=== PATIENT | male | born 1940 | race Caucasian/White ===

== ENCOUNTER 2017-02-21 11:19 | Inpatient (IN) | payer MEDICARE ==
[2017-02-21] MEDS ORDERED: NS 0.9% 1000 ML* 1,000 ML IV ONE ×2 (11:37→12:11)
[2017-02-21 11:50] LABS: Hematocrit 23 % (42-52); Hemoglobin 7.5 g/dl (14.0-18.0); Mean Corpuscular HGB Conc 33 g/dl (31-36); Mean Corpuscular Hemoglobin 33 pg (27-31); Mean Corpuscular Volume 99 fL (80-94); Mean Platelet Volume 8 um3 (7.4-10.4); Red Blood Count 2.29 10^6/ul (4.0-5.4); Red Cell Distribution Width 13 % (10.5-15); White Blood Count 9.8 10^3/ul (3.5-10.8)
[2017-02-21 12:02] LABS: ALT 300 U/L (7-52); AST 251 U/L (13-39); Albumin 3.7 g/dL (3.2-5.2); Alkaline Phosphatase 62 U/L (34-104); Amylase 20 U/L (29-103); Anion Gap 14 mmol/L (2-11); BUN/Creatinine Ratio 24.1 (8-20); Blood Urea Nitrogen 77 mg/dL (6-24); C Reactive Protein 23.66 mg/L (< 5.00); CO2 Carbon Dioxide 23 mmol/L (22-32); Calcium 9.4 mg/dL (8.6-10.3); Chloride 94 mmol/L (101-111); EGFR African American 24.4 (>60); Globulin 3.5 g/dL (2-4); Glucose 142 mg/dL (70-100); Lipase 37 U/L (11.0-82.0); Magnesium 2.3 mg/dL (1.9-2.7); Potassium 3.4 mmol/L (3.5-5.0); Sodium 131 mmol/L (133-145); Total Protein 7.2 g/dL (6.4-8.9)
[2017-02-21] MEDS ORDERED: Pantoprazole IV* 40 MG IV ONE (12:11)
--- NOTE | 2017-02-21 13:01 | RAD ---
HISTORY: Shortness of breath COMPARISONS: October 04, 2014 VIEWS: 2: Frontal dual-energy and lateral views of the chest. FINDINGS: CARDIOMEDIASTINAL SILHOUETTE: The cardiomediastinal silhouette is normal. KALPESH: The kalpesh are normal. PLEURA: The costophrenic angles are sharp. No pleural abnormalities are noted. LUNG PARENCHYMA: There is hyperinflation with flattening of the diaphragm and expansion of the AP diameter of the chest. ABDOMEN: The upper abdomen is clear. There is no subphrenic gas. BONES AND SOFT TISSUES: The patient is status post right shoulder arthroplasty OTHER: None. IMPRESSION: HYPERINFLATION, CONSISTENT WITH COPD. NO ACTIVE CARDIOPULMONARY DISEASE.
--- NOTE | 2017-02-21 13:02 | RAD ---
Indication: Diarrhea. Shortness of breath. Comparison: No relevant prior exams available on the [facility] P[facility] for comparison. Technique: Supine and LEFT lateral decubitus abdomen views obtained. Report: Negative for free air. Negative for dilated small or large bowel loops. On the decubitus views short small and large bowel air-fluid levels are noted. No suspicious calcifications or mass effect. Unremarkable soft tissue contours. IMPRESSION: Consider gastroenteritis.
[2017-02-21] MEDS ORDERED: Ondansetron INJ* 2 MG/ML VIAL IV PRN (13:08)
[2017-02-21] MEDS ORDERED: NS 0.9% 1000 ML* 1,000 ML IV SCH (13:15)
[2017-02-21] MEDS ORDERED: LORazepam TAB(*) 1 MG PO SCH (14:00)
[2017-02-21] MEDS: KCL 10 MEQ/50 ML IVPREMIX* 10 MEQ/50 ML BAG IV SCH ×3 (14:47→18:12)
[2017-02-21] MEDS: Gabapentin CAP(*) 300 MG PO SCH ×2 (14:48→20:15)
[2017-02-21 15:11] LABS: Alcohol < 10 mg/dL (<10)
[2017-02-21] MEDS ORDERED: NS 0.9% 250 ML* 250 ML ONE (16:02)
[2017-02-21] MEDS: Pantoprazole IV* 80 MG in NS 0.9% 250 ML* 250 ML IVPB SCH (18:12)
[2017-02-21 18:33] LABS: Hematocrit 21 % (42-52)
--- NOTE | 2017-02-21 18:41 | ED ---
marcus Barney Timothy, scribed for Darshan Myrick MD on 02/21/17 at 1135 . Shortness of Breath - HPI Summary HPI Summary: Taj Schmidt is a 76 yo male presenting to [facility] with SOB. Pt has had bloody , purple BM for the past 4 days with SOB. Pt uses 4 L NC at home. Per EMS, Pt was pale, diaphoretic, and had O2 sats in the 50's upon their arrival. Pt was placed on CPAP and saturation improved. He denies any use of blood thinners. His last colonoscopy was 4 years ago and was normal. He denies any current pain , CP, N/V, cough. His MHx includes HTN, COPD, emphysema, asthma, bronchitis, BiPAP dependent, sleep apnea, 2x umbilical hernia, arthritis, herniated disk, anxiety. - History of Current Complaint Chief Complaint: EDShortnessOfBreath Time Seen by Provider: 02/21/17 11:29 Hx Obtained From: Patient Onset/Duration: Gradual Onset, Lasting Days, Still Present Timing: Constant Current Severity: Moderate Dyspnea At: Rest - Allergy/Home Medications Allergies/Adverse Reactions: Allergies Allergy/AdvReac Type Severity Reaction Status Date / Time Aspirin Allergy Intermediate GI Upset Verified 08/02/16 14:24 Hydrochlorothiazide Allergy Intermediate GI Upset Verified 08/02/16 14:24 Tetracyclines & Related Allergy Intermediate GI Upset Verified 08/02/16 14:24 Home Medications: Home Medications Albuterol HFA INHALER* [Ventolin HFA Inhaler*] 2 puff INH Q4H PRN 02/21/17 [ History Confirmed 02/21/17] Fluticasone-Salmeterol 250-50* [Advair Diskus 250-50*] 1 puff INH BID 02/21/17 [ History Confirmed 02/21/17] LORazepam TAB(*) [Ativan 1 MG TAB (*)] 0.5 mg PO DAILY 02/21/17 [History Confirmed 02/21/17] Multivitamins/Minerals TAB* [Theragran/minerals TAB*] 1 tab PO DAILY 02/21/17 [ History Confirmed 02/21/17] Nitroglycerin TAB 0.4 MG* 0.4 mg SL Q5M PRN 02/21/17 [History Confirmed 02/21/17 ] PMH/Surg Hx/FS Hx/Imm Hx Endocrine/Hematology History: Denies: Hx Diabetes Cardiovascular History: Reports: Hx Hypertension - CONTROLLED WITH MEDS Denies: Hx Pacemaker/ICD Respiratory History: Reports: Hx Chronic Obstructive Pulmonary Disease (COPD), Hx Sleep Apnea - BIPAP WITH OXYGEN SET AT 4 Denies: Hx Asthma - EMPHYSEMA GI History: Reports: Other GI Disorders - UMBILICAL HERNIAS X2 Musculoskeletal History: Reports: Hx Arthritis - RIGHT SHOULDER, FINGERS, LEGS, KNEES Denies: Hx Osteoporosis Sensory History: Reports: Hx Contacts or Glasses Denies: Hx Hearing Aid Opthamlomology History: Reports: Hx Contacts or Glasses Psychiatric History: Reports: Hx Anxiety - PRN LORAZEPAM-RELATES TO COPD- INCREASED ANXIETY WHEN HAS DIFF. BREATHING Denies: Hx Panic Disorder - Surgical History Surgery Procedure, Year, and Place: back/disc surgery X2 (2008,2009),[facility]Y Hx Anesthesia Reactions: No Infectious Disease History: Denies: Traveled Outside the [place] in Last 30 Days - Family History Known Family History: Negative: Cardiac Disease, Hypertension, Diabetes - Social History Alcohol Use: Daily Alcohol Amount: 5 beers/day Substance Use Type: Reports: None Smoking Status (MU): Former Smoker Amount Used/How Often: 1-1 1/2 PPD X38 YEARS Review of Systems Positive: Skin Diaphoresis, Other - pale Eyes: Negative ENT: Negative Cardiovascular: Negative Positive: Shortness Of Breath Positive: Other - bloody stool Genitourinary: Negative Musculoskeletal: Negative Skin: Negative Neurological: Negative Psychological: Normal All Other Systems Reviewed And Are Negative: Yes Physical Exam - Summary Physical Exam Summary: VITAL SIGNS: Reviewed. GENERAL: Patient is a well-developed and nourished male who is lying comfortable in the stretcher. Patient is in mild respiratory distress and is pale on BiPAP from ambulance. He is able to complete full sentences. Pt is very anxious. HEAD AND FACE: No signs of trauma. No ecchymosis, hematomas or skull depressions. No sinus tenderness. EYES: PERRLA, EOMI x 2, No injected conjunctiva, no nystagmus. EARS: Hearing grossly intact. Ear canals and tympanic membranes are within normal limits. MOUTH: Oropharynx within normal limits. NECK: Supple, trachea is midline, no adenopathy, no JVD, no carotid bruit, no c- spine tenderness, neck with full ROM. CHEST: Symmetric, no tenderness at palpation LUNGS: Clear to auscultation bilaterally. No wheezing or crackles. CVS: Regular rate and rhythm, S1 and S2 present, no murmurs or gallops appreciated. ABDOMEN: Soft, non-tender. No signs of distention. No rebound no guarding, and no masses palpated. Bowel sounds are normal. EXTREMITIES: FROM in all major joints, no edema, no cyanosis or clubbing. NEURO: Alert and oriented x 3. No acute neurological deficits. Speech is normal and follows commands. SKIN: Dry and warm RECTAL: no gross blood or melena. Triage Information Reviewed: Yes Vital Signs On Initial Exam: Initial Vital Signs Temp 98.6 F 02/21/17 11:26 Pulse 90 02/21/17 11:26 Resp 24 02/21/17 11:26 BP 111/53 02/21/17 11:26 Pulse Ox 96 02/21/17 11:26 Vital Signs Reviewed: Yes Diagnostics - Vital Signs Vital Signs Temp Pulse Resp BP Pulse Ox 02/21/17 13:00 84 18 121/51 96 02/21/17 12:56 85 16 102/65 100 02/21/17 12:14 81 16 112/48 100 02/21/17 12:00 84 16 99 02/21/17 11:28 21 02/21/17 11:27 111/53 02/21/17 11:26 98.6 F 90 24 111/53 96 - Laboratory Lab Results: Lab Results 02/21/17 02/21/17 02/21/17 Range/Units 11:30 11:30 11:30 WBC 9.8 (3.5-10.8) 10^3/ul RBC 2.29 L (4.0-5.4) 10^6/ul Hgb 7.5 L (14.0-18.0) g/dl Hct 23 L (42-52) % MCV 99 H (80-94) fL MCH 33 H (27-31) pg MCHC 33 (31-36) g/dl RDW 13 (10.5-15) % Plt Count 468 H (150-450) 10^3/ul MPV 8 (7.4-10.4) um3 Neut % (Auto) 79.3 (38-83) % Lymph % (Auto) 8.1 L (25-47) % [place] % (Auto) 11.3 H (1-9) % Eos % (Auto) 0.6 (0-6) % Baso % (Auto) 0.7 (0-2) % Absolute Neuts (auto) 7.8 H (1.5-7.7) 10^3/ul Absolute Lymphs (auto) 0.8 L (1.0-4.8) 10^3/ul Absolute Monos (auto) 1.1 H (0-0.8) 10^3/ul Absolute Eos (auto) 0.1 (0-0.6) 10^3/ul Absolute Basos (auto) 0.1 (0-0.2) 10^3/ul Absolute Nucleated RBC 0.01 10^3/ul Nucleated RBC % 0.1 INR (Anticoag Therapy) 0.98 (0.89-1.11) APTT 29.0 (26.0-36.3) seconds Sodium 131 L (133-145) mmol/L Potassium 3.4 L (3.5-5.0) mmol/L Chloride 94 L (101-111) mmol/L Carbon Dioxide 23 (22-32) mmol/L Anion Gap 14 H (2-11) mmol/L BUN 77 H (6-24) mg/dL Creatinine 3.20 H (0.67-1.17) mg/dL Est GFR ( Amer) 24.4 (>60) Est GFR (Non-Af Amer) 19.0 (>60) BUN/Creatinine Ratio 24.1 H (8-20) Glucose 142 H (70-100) mg/dL Lactic Acid (0.5-2.0) mmol/L Calcium 9.4 (8.6-10.3) mg/dL Magnesium 2.3 (1.9-2.7) mg/dL Total Bilirubin 0.70 (0.2-1.0) mg/dL AST 251 H (13-39) U/L ALT 300 H (7-52) U/L Alkaline Phosphatase 62 (34-104) U/L C-Reactive Protein 23.66 H (< 5.00) mg/L B-Natriuretic Peptide ( - 100) pg/mL Total Protein 7.2 (6.4-8.9) g/dL Albumin 3.7 (3.2-5.2) g/dL Globulin 3.5 (2-4) g/dL Albumin/Globulin Ratio 1.1 (1-3) Amylase 20 L (29-103) U/L Lipase 37 (11.0-82.0) U/L Serum Alcohol < 10 (<10) mg/dL Blood Type Antibody Screen Crossmatch 02/21/17 02/21/17 02/21/17 Range/Units 11:30 11:30 11:30 WBC (3.5-10.8) 10^3/ul RBC (4.0-5.4) 10^6/ul Hgb (14.0-18.0) g/dl Hct (42-52) % MCV (80-94) fL MCH (27-31) pg MCHC (31-36) g/dl RDW (10.5-15) % Plt Count (150-450) 10^3/ul MPV (7.4-10.4) um3 Neut % (Auto) (38-83) % Lymph % (Auto) (25-47) % [place] % (Auto) (1-9) % Eos % (Auto) (0-6) % Baso % (Auto) (0-2) % Absolute Neuts (auto) (1.5-7.7) 10^3/ul Absolute Lymphs (auto) (1.0-4.8) 10^3/ul Absolute Monos (auto) (0-0.8) 10^3/ul Absolute Eos (auto) (0-0.6) 10^3/ul Absolute Basos (auto) (0-0.2) 10^3/ul Absolute Nucleated RBC 10^3/ul Nucleated RBC % INR (Anticoag Therapy) (0.89-1.11) APTT (26.0-36.3) seconds Sodium (133-145) mmol/L Potassium (3.5-5.0) mmol/L Chloride (101-111) mmol/L Carbon Dioxide (22-32) mmol/L Anion Gap (2-11) mmol/L BUN (6-24) mg/dL Creatinine (0.67-1.17) mg/dL Est GFR ( Amer) (>60) Est GFR (Non-Af Amer) (>60) BUN/Creatinine Ratio (8-20) Glucose (70-100) mg/dL Lactic Acid 1.9 (0.5-2.0) mmol/L Calcium (8.6-10.3) mg/dL Magnesium (1.9-2.7) mg/dL Total Bilirubin (0.2-1.0) mg/dL AST (13-39) U/L ALT (7-52) U/L Alkaline Phosphatase (34-104) U/L C-Reactive Protein (< 5.00) mg/L B-Natriuretic Peptide 102 H ( - 100) pg/mL Total Protein (6.4-8.9) g/dL Albumin (3.2-5.2) g/dL Globulin (2-4) g/dL Albumin/Globulin Ratio (1-3) Amylase (29-103) U/L Lipase (11.0-82.0) U/L Serum Alcohol (<10) mg/dL Blood Type A Negative Antibody Screen Negative Crossmatch See Detail Result Diagrams: 02/21/17 11:30 02/21/17 11:30 Lab Statement: Any lab studies that have been ordered have been reviewed, and results considered in the medical decision making process. - Radiology Abd XR Xray Interpretation: Positive (See Comments) - IMPRESSION: Consider gastroenteritis. Radiology Interpretation Completed By: Radiologist CXR Xray Interpretation: No Acute Changes - IMPRESSION: HYPERINFLATION, CONSISTENT WITH COPD. NO ACTIVE CARDIOPULMONARY DISEASE. Radiology Interpretation Completed By: Radiologist - EKG 1137 Cardiac Rate: NL - 87 BPM EKG Interpretation: NSR @ 87 BPM, no ST elevation Course/Dx - Course Assessment/Plan: Taj Schmidt is a 76 yo male presenting [facility] with bloody stool and SOB for the past 4 days, worse today. His EKG suggests normal rhythm without ST elevation. In the ED he received IV fluids and protonix. His stool is positive for blood. His Abd XR suggests gastroenteritis. His CXR suggests hyperinflation with no acute cardiopulmonary disease. After clinical examination and review of his lab and imaging studies, as well as discussion with Dr. Brand, he will be admitted to [facility]. Of note is his lab work: Hgb 7.5, Hct 23, Na 131, K 3.4, BUN 77, Creatinine 3.0, consistent with acute renal insufficiency. His AST 251, ALT 300, CRP 23.6. His rectal exam is guiac positive. His BP is on the low side at 111/53 but is stable. His heart rate is 84 BPM, O2 sat 94 on room air. Pt initially was given 2 IV access, started with IV fluids and protonix. He continues to be hemodynamically stable. I discussed the Pt condition with Dr. Brand, who accepts him for admission to [facility]. The Pt is likely dealing with a GI bleed. Pt reports a clean colonoscopy 4 years ag. He is not on anticoagulation therapy or NSAID's, but is an alcoholic. Therefore , he is at increased risk for esophageal varices and GI bleed. - Diagnoses Provider Diagnoses: GI bleed - Physician Notifications Discussed Care of Patient With: 1119 - Dr. Brand (hospitalist) - discussed Pt condition, agrees to admit Pt. - Critical Care Time Critical Care Time: 30-74 min Discharge - Discharge Plan Condition: Stable Disposition: ADMITTED TO [facility] The documentation as recorded by the marcus rey Timothy accurately reflects the service I personally performed and the decisions made by me, Darshan Myrick MD.
--- NOTE | 2017-02-21 19:31 | RAD ---
CLINICAL HISTORY: Bloody bowel movements and shortness of breath. Relevant surgical history includes appendectomy. COMPARISON: None TECHNIQUE: Noncontrast CT examination of the abdomen and pelvis from the lung bases through the initial tuberosities. FINDINGS: VISUALIZED LUNG BASES: Lungs exhibit diffuse centrilobular emphysematous changes. At the bilateral lung bases there is a small degree of subpleural interlobular thickening, worse on the right than the left. ABDOMEN AND PELVIS: Evaluation of the solid organs and vasculature is limited without intravenous contrast. The liver, spleen, pancreas and adrenal glands are grossly normal in appearance. The gallbladder is normal. In the subareolar region of the liver there is a dilated vascular structure measuring 7 mm in diameter (axial image 24 of 96) that appears to communicate with the superior mesenteric vein. The main portal vein is not pathologically dilated measuring 1.1 cm in diameter. There are questionable venous varicosities along the lesser curvature of the stomach (image 20). The kidneys are normal in appearance without focal mass, calcification or signs of hydronephrosis. The urinary bladder appears distended but the volume only measures 700 mL. Neural contrast has progressed as far as the rectum. The small and large bowel are not distended. There are diverticula seen throughout the length of the colon that become more numerous and concentrated distally in the rectosigmoid colon. There is no gross retroperitoneal or mesenteric lymphadenopathy. The prostate measures 3.8 x 5.2 cm in the axial plane and 6 cm in the cephalocaudal projection. There is coarse calcification of the lower abdominal aorta extending into the bilateral iliac arteries. Similar calcifications are seen in the proximal femoral arteries. Degenerative changes include multilevel loss of intervertebral disc height involving the lower thoracic and lumbar spine.There are no sinister bone lesions. IMPRESSION: 1. Diverticulosis without CT evidence of acute inflammatory change characteristic of diverticulitis, within the limitations of a non-IV contrast enhanced CT examination. 2. There are suspicious signs of portal venous hypertension yielding mesenteric and gastric varices. Please correlate to any signs of upper GI bleed. 3. Mild prostatomegaly with a top normal but not pathologically enlarged urinary bladder. Please correlate to signs and symptoms of urinary outlet obstruction.
[2017-02-21] MEDS: Mometasone/Formoter 200/5 MDI INH SCH (20:51)
--- NOTE | 2017-02-21 21:15 | HP ---
HISTORY AND PHYSICAL: DATE OF ADMISSION: 02/21/17 PRIMARY CARE DOCTOR: Diane Zavala MD ATTENDING PHYSICIAN WHILE IN THE HOSPITAL: Jerome Brand MD* (report being dictated by Ryan Jackson NP). CHIEF COMPLAINT: Bright red blood per rectum. HISTORY OF PRESENT ILLNESS: Mr. Schmidt is a 76-year-old male patient. He has a history of COPD, hypertension, ARIA, CAD and diverticulitis. He has had an upper endoscopy done in 2014 that did not reveal any esophageal varices. He does state that he admits to drinking about 2 to 3 beers daily, but he has not drank in the last 5 days. He states that over the last 2 to 3 days he has noticed that when he has been having bowel movements, his bowel movements have been almost like a maroon color with bright red blood. He says that he noticed yesterday whenever he changed position, he was feeling lightheaded almost to the point where he was going to pass out. He did fall several times yesterday down to his knees because he was feeling so lightheaded when he changed position. He states he has been taking his medications as prescribed. He also admits to having some lower abdominal discomfort and cramping, but he denies that now. He states that the last couple of days he did have some, mostly in the left lower quadrant. He denied having any fevers and there has been no vomiting and he states the stool has not been really tarry. He states that he has been taking ibuprofen 2 to 3 times a day the last 4 to 5 days as well. He states that he has not really been eating or drinking as much as he should. He was concerned today because he had another large bowel movement that was again purplish in color with bright red blood, so he decided to come in to the ER. He does state that he had a colonoscopy he thinks 4 years ago down at [place] and he knows he has polyps and he states in the past he has had diverticulitis. He came in, he was evaluated by Dr. Myrick. There was concern for GI bleed. We were asked to evaluate for admission. PAST MEDICAL HISTORY: Significant for: 1. COPD. 2. Hypertension. 3. ARIA. 4. CAD. 5. Diverticulitis. PAST SURGICAL HISTORY: 1. He has had an appendectomy. 2. Hernia repair. MEDICATIONS: His home meds according to the pharmacy includes: 1. Tramadol 50 mg every 8 hours as needed. 2. Ambien 5 mg p.o. at bedtime as needed. 3. Zocor 20 mg daily. 4. Metamucil 1 packet daily as needed. 5. Nitro 0.4 mg sublingual q.5 minutes p.r.n. chest pain. 6. Multivitamin 1 tablet daily. 7. Ativan 0.5 mg p.o. daily. 8. Imdur 60 mg p.o. q.p.m. 9. Neurontin 300 mg p.o. t.i.d. 10. Lasix 40 mg p.o. daily. 11. Advair 1 puff inhaled b.i.d. 12. Cranberry 500 mg daily. 13. Vitamin D3 1000 units p.o. daily. 14. Ventolin 2 puffs inhaled every 4 hours as needed. 15. Albuterol 2.5 mg inhaled every 6 hours as needed. ALLERGIES: To medications include ASPIRIN, HYDROCHLOROTHIAZIDE and TETRACYCLINE. FAMILY HISTORY: His mother had lung cancer. Father at the age of 93. SOCIAL HISTORY: He does not smoke. He used to smoke. He does drink 2 beers a day. Surrogate decision maker is his friend, Elias. REVIEW OF SYSTEMS: There is no documented fever. He denied any significant weight change. No double vision. No ear discharge. No rhinorrhea. No sore throat. No thyroid enlargement. He denies having any chest pain. There is no orthopnea. No nocturnal dyspnea. There was abdominal discomfort, but none now. He denies any nausea, vomiting. No dysuria. No frequency. No seizure. No loss of consciousness. No pruritus. No skin ulcerations. Review of 14 systems completed, all others negative. PHYSICAL EXAMINATION GENERAL: At this time, Mr. Schmidt is a 76-year-old male patient. He is sitting in the ER stretcher. He does not appear to be in any acute distress. VITAL SIGNS: Blood pressure 111/53 with a pulse of 92, respirations 20, O2 sat 99% on 4 L and a temperature of 98.6. HEENT: Head atraumatic. Eyes: Sclerae anicteric. They did appear to be pale. Throat: Oral mucosa appears to be dry. No oropharyngeal erythema. NECK: Supple. LUNGS: Clear to auscultation. No wheezes, rales or rhonchi. HEART: Sounds S1, S2. Regular rate and rhythm. No murmurs, rubs, or gallops. ABDOMEN: Soft, it was flat. There was a little bit of tenderness in the left lower quadrant. On rectal exam I did not appreciate any bright red blood. EXTREMITIES: Pulses are 2+ throughout. No peripheral edema. Able to move all 4 extremities with 5/5 strength. NEUROLOGIC: He is awake, alert, oriented x3. Tongue midline. Law Enforcement Instructor are equal. No gross focal deficits. SKIN: Intact. DIAGNOSTIC STUDIES/LAB DATA: His labs today reveal a WBC of 9.8, RBC of 2.29, hemoglobin of 7.5, hematocrit 23, platelet count 468. PTT at 29. His sodium was 131, potassium of 3.4, chloride of 94, bicarb 23. BUN 77; creatinine of 3.20, his baseline creatinine is about 0.8. His glucose is 142, lactate 1.9, calcium 9.4, mag 2.3, total bili 0.7, AST 251, ALT 300, alk phos 62. BNP of 102 , albumin 3.7, lipase 37, amylase 20. He did have a chest x-ray obtained today, which revealed hyperinflation consistent with COPD, no active disease was noted. He had an abdominal x-ray, which revealed consider gastroenteritis. Old medical records reviewed. ASSESSMENT AND PLAN: Mr. Schmidt is a 76-year-old male patient coming into the ER today with complaints of purplish type stools and bright red blood per rectum. He will be admitted under inpatient status for: 1. GI bleed. I suspect the etiology of this is lower GI bleed. He certainly could have a diverticular bleed. I do not think this is ischemic colitis as he is not having a significant amount of pain currently. The plan is to keep the patient on clears, cycle his H and H, check orthostatics. In addition to this, get GI input. I am going to go ahead and put him on PPI because he has been taking a significant amount of NSAIDs. In addition to this, his BUN is up compared to his baseline and we will go ahead and give him 1 unit of blood. I am going to have GI come and evaluate the patient later today and we will follow closely and we will go ahead and continue hydration. He got 2 L here in the ER, he will have normal saline at 100 an hour after the 1 unit of blood and then we will follow the H and H and transfuse as needed. I am getting a CT of the abdomen and pelvis as well. 2. Acute kidney injury. Again, etiology is unclear. It certainly could be from the NSAIDs and the fact that he was taking Lasix could be prerenal and he may have some acute tubular necrosis. He did certainly have some hypoxia when he came in, it was documented by the ambulance. His sats were in the 50s when they arrived on the scene, so he may have also been hypotensive, it is unclear which may have caused again some acute kidney injury. My plan is to go ahead and get a FeNa, bladder scan him, hydrate him and follow this closely. 3. Hyponatremia, it is mild. Again, could be dehydration. We will follow BMP in the morning. 4. Hypokalemia. We will go ahead and replace potassium. 5. Elevated LFTs. Etiology is unclear. It could be from alcohol consumption, it could be related to hypotension with hypoxia causing some stress on the liver. It could also be related to his medication use. I am going to trend these. GI will be involved and I am going to get a CT of the abdomen and pelvis to evaluate. 6. Chronic obstructive pulmonary disease. We will continue his medicine as prescribed and does not appear to be in exacerbation. 7. Hypertension. Continue meds as prescribed. 8. Obstructive sleep apnea. I have ordered a CPAP. 9. Coronary artery disease. We will restart his nitrates and blood pressure medication when able. Holding on any blood thinners. 10. DVT prophylaxis. He will be placed on SCDs. 11. Code status. Full code. 12. Fluids, electrolytes, nutrition. He can have a clear liquid diet. TIME SPENT: On the admission was approximately 60 minutes, greater than half the time was spent [id number] with the patient obtaining my history and physical, other half of the time spent going over the plan of care with the patient and implementing plan of care. I did discuss the plan of care with my attending, Dr. Brand; he is in agreement. RYAN JACKSON NP CC: Diane Zavala MD; Dr. Miranda* [id number]/[facility] #: [id number] [facility]
[2017-02-22] MEDS: Zolpidem TAB* 5 MG PO PRN (00:20)
[2017-02-22 01:57] LABS: Hematocrit 22 % (42-52); Hemoglobin 7.4 g/dl (14.0-18.0)
--- NOTE | 2017-02-22 02:21 | CONS ---
CONSULTATION REPORT: DATE OF CONSULTATION: 02/21/17 REQUESTING PHYSICIAN: Ryan Jackson NP INDICATION: Hematochezia. NARRATIVE: Mr. Schmidt is a 76-year-old gentleman, who has a known history of diverticulosis, who comes in with maroon stools for the past week. He denies any abdominal pain. He states this morning the bleeding became much more severe. He panicked and came to the emergency room. He was found to have a hemoglobin of 7.5. He has been weak, dizzy and finding it difficult to ambulate due to his weakness. He denies any nausea or vomiting. There has been no abdominal pain. He has been taking nonsteroidals for the past week for leg pain; however, he denies any black and tarry stools, no bright red blood. He has never had bleeding like this before. He tells me his last colonoscopy was 4 years ago at the [facility] with Dr. Dash. They told him he only had diverticulosis, no polyps. He tells me that he had a colonoscopy before that, at which time he had 7 polyps removed and the time before that 14 polyps removed. He has had diverticulosis each time. PAST MEDICAL HISTORY: Significant for oxygen requiring COPD, hypertension, right bundle branch block, hyperlipidemia, coronary artery disease, anemia, ARIA , and diverticulosis. PAST SURGICAL HISTORY: Include appendectomy and back surgery. MEDICATIONS UPON ADMISSION: Include: 1. Albuterol. 2. Lipitor. 3. Neurontin. 4. Ativan. 5. Dulera. 6. Zofran. 7. Ambien. ALLERGIES: ASPIRIN, HYDROCHLOROTHIAZIDE, TETRACYCLINE. FAMILY HISTORY: No GI malignancies. REVIEW OF SYSTEMS: All systems were reviewed, other than that mentioned in the HPI are unremarkable. PHYSICAL EXAM: Temperature is 97.7, blood pressure is 120/46, pulse is 76, respiratory rate 16. General: Chronically ill-appearing male, appears older than stated age. Alert, oriented, pleasant, fluent. HEENT: Mucous membranes are moist without lesions, ulcers or exudate. Neck: Supple. Trachea is midline. Head is normocephalic, atraumatic. Heart: Regular rate and rhythm. Lungs: Coarse breath sounds bilaterally. No crackles. Abdomen: Positive bowel sounds. Soft, nontender, nondistended. No hepatosplenomegaly, masses, rebound or guarding. Skin is warm and dry. LABORATORY DATA: Labs of note, hemoglobin 7.5, platelets of 468. BUN of 77, creatinine is 3.20. AST is 281, ALT is 300, CRP is 23.66. T. bili is 0.7. Alk phos is 62. ASSESSMENT AND PLAN: This is a 76-year-old gentleman, who has been having maroon stools for a week, who is now anemic and symptomatic. He is receiving blood. I do wonder if he is having a diverticular bleed. According to the patient, he just had a colonoscopy 4 years ago, at which time only diverticulosis was seen. He is not having any pain that is consistent with a diverticular bleed. I would recommend that we continue to monitor him closely. We will need to obtain the results of his previous colonoscopy. He also has increased LFTs, I am not sure the cause of this. We will repeat the LFTs and further workup will be determined if the LFTs remained elevated. He also has chronic renal insufficiency. CC: Dr. Zavala* [id number]/[facility] #: [id number]
[2017-02-22 03:49] LABS: Urine Bacteria 1+ (Absent); Urine Bilirubin Negative (Negative); Urine Glucose 1+(50 mg/dL) (Negative); Urine Nitrite Negative (Negative)
[2017-02-22] MEDS ORDERED: NS 0.9% 250 ML* 250 ML ONE ×2 (04:38)
[2017-02-22] MEDS: Pantoprazole IV* 80 MG in NS 0.9% 250 ML* 250 ML IVPB SCH ×2 (05:06→16:58)
[2017-02-22 07:52] LABS: Hematocrit 24 % (42-52); Hemoglobin 8.2 g/dl (14.0-18.0); Mean Corpuscular HGB Conc 34 g/dl (31-36); Mean Corpuscular Hemoglobin 32 pg (27-31); Mean Corpuscular Volume 94 fL (80-94); Mean Platelet Volume 7 um3 (7.4-10.4); Red Blood Count 2.58 10^6/ul (4.0-5.4); Red Cell Distribution Width 16 % (10.5-15); White Blood Count 6.5 10^3/ul (3.5-10.8)
[2017-02-22 08:01] LABS: Direct Bilirubin 0.2 mg/dL (0.03-0.18); EGFR Non-African American 39.7 (>60); Globulin 2.7 g/dL (2-4); Indirect Bilirubin 0.7 mg/dL (0.3-1.0); Potassium 3.1 mmol/L (3.5-5.0); Total Bilirubin 0.9 mg/dL (0.2-1.0); Total Protein 5.7 g/dL (6.4-8.9)
[2017-02-22] MEDS: Thiamine TAB* 100 MG TAB PO SCH (08:04)
[2017-02-22] MEDS: Atorvastatin* 10 MG TAB PO SCH (08:05)
[2017-02-22] MEDS: Gabapentin CAP(*) 300 MG PO SCH ×3 (08:05→20:10)
[2017-02-22] MEDS: Multivitamins/Minerals TAB PO SCH (08:05)
[2017-02-22] MEDS: LORazepam TAB(*) 0.5 MG PO SCH (08:05)
[2017-02-22] MEDS: Folic Acid TAB* 1 MG PO SCH (08:05)
[2017-02-22] MEDS ORDERED: Potassium Chlor TAB* 20 MEQ TAB.ER PO ONE (08:09)
[2017-02-22] MEDS: Mometasone/Formoter 200/5 MDI INH SCH ×2 (09:06→19:57)
--- NOTE | 2017-02-22 11:03 | PN ---
Subjective Date of Service: 02/22/17 Interval History: Patient seen and examined at bedside. Denies chest pain, SOB, abd pain, n/v. Reports episode of bloody stool this AM x 1. Family History: Unchanged from Admission Social History: Unchanged from Admission Past Medical History: Unchanged from Admission Objective Active Medications: Albuterol (Ventolin 2.5 Mg/3 Ml Neb.Nellie*) 2.5 mg INH Q2H PRN PRN Reason: SOB/WHEEZING Atorvastatin Calcium (Lipitor*) 10 mg PO DAILY [facility] Last Admin: 02/22/17 08:05 Dose: 10 mg Folic Acid (Folvite Tab*) 1 mg PO DAILY [facility] Last Admin: 02/22/17 08:05 Dose: 1 mg Gabapentin (Neurontin Cap(*)) 300 mg PO TID [facility] Last Admin: 02/22/17 08:05 Dose: 300 mg Sodium Chloride (Ns 0.9% 1000 Ml*) 1,000 mls @ 100 mls/hr IV PER RATE [facility] Last Admin: 02/21/17 18:13 Dose: 100 mls/hr Pantoprazole Sodium 80 mg/ (Sodium Chloride) 250 mls @ 25 mls/hr IVPB Q10H [facility] Last Admin: 02/22/17 05:06 Dose: 25 mls/hr Lorazepam (Ativan Tab(*)) 0 mg PO .PER WAM SCORE [facility] PRN Reason: Protocol Lorazepam (Ativan Tab(*)) 0.5 mg PO DAILY [facility] Last Admin: 02/22/17 08:05 Dose: 0.5 mg Mometasone Furoate/Formoterol Fumar (Dulera 200/5 Mdi*) 2 puff INH BID [facility] Last Admin: 02/22/17 09:06 Dose: 2 puff Multivitamins/Minerals (Theragran/Minerals Tab*) 1 tab PO DAILY [facility] Last Admin: 02/22/17 08:05 Dose: 1 tab Ondansetron HCl (Zofran Inj*) 4 mg IV Q6H PRN PRN Reason: NAUSEA Thiamine HCl (Vitamin B-1 Tab*) 100 mg PO DAILY [facility] Last Admin: 02/22/17 08:04 Dose: 100 mg Tramadol HCl (Ultram*) 50 mg PO Q8HR PRN PRN Reason: PAIN Zolpidem Tartrate (Ambien Tab*) 5 mg PO BEDTIME PRN PRN Reason: SLEEP Last Admin: 02/22/17 00:20 Dose: 5 mg Vital Signs 02/21/17 02/21/17 02/21/17 13:47 14:00 14:48 Temperature 97.7 F Pulse Rate 76 79 Respiratory 16 17 18 Rate Blood Pressure 120/46 122/51 (mmHg) O2 Sat by Pulse 95 100 Oximetry 02/21/17 02/21/17 02/21/17 15:16 16:38 19:29 Temperature Pulse Rate 81 Respiratory 18 18 18 Rate Blood Pressure 123/47 (mmHg) O2 Sat by Pulse 100 Oximetry 02/21/17 02/21/17 02/21/17 19:56 19:58 20:00 Temperature 99.5 F Pulse Rate 97 Respiratory 16 Rate Blood Pressure 110/42 (mmHg) O2 Sat by Pulse Oximetry 02/21/17 02/21/17 02/21/17 20:15 20:55 23:44 Temperature 98.8 F Pulse Rate 87 73 Respiratory 16 20 16 Rate Blood Pressure 126/51 (mmHg) O2 Sat by Pulse 95 92 Oximetry 02/22/17 02/22/17 02/22/17 03:24 05:31 08:00 Temperature 98.6 F 99.1 F 99.6 F Pulse Rate 77 80 85 Respiratory 19 18 16 Rate Blood Pressure 132/58 125/40 108/53 (mmHg) O2 Sat by Pulse 95 93 95 Oximetry 02/22/17 02/22/17 02/22/17 08:05 08:10 09:08 Temperature 97.3 F Pulse Rate 71 Respiratory 16 16 Rate Blood Pressure (mmHg) O2 Sat by Pulse 98 Oximetry 02/22/17 10:05 Temperature Pulse Rate Respiratory 16 Rate Blood Pressure (mmHg) O2 Sat by Pulse Oximetry Oxygen Devices in Use Now: Nasal Cannula - 4L Appearance: Older male, lying in bed, NAD Eyes: PERRLA Ears/Nose/Mouth/Throat: Mucous Membranes Moist Neck: NL Appearance and Movements; NL JVP Respiratory: Symmetrical Chest Expansion and Respiratory Effort, Clear to Auscultation Cardiovascular: NL Sounds; No Murmurs; No JVD, RRR Abdominal: - - mild tenderness LLQ, abd soft, BS present Neurological: Alert and Oriented x 3 Lines/Tubes/Other Access: Clean, Dry and Intact Peripheral IV Nutrition: Taking PO's Result Diagrams: 02/22/17 11:53 02/22/17 06:42 Additional Lab and Data: Lab Results 02/21/17 02/21/17 02/21/17 Range/Units 11:30 11:30 11:30 WBC 9.8 (3.5-10.8) 10^3/ul RBC 2.29 L (4.0-5.4) 10^6/ul Hgb 7.5 L (14.0-18.0) g/dl Hct 23 L (42-52) % MCV 99 H (80-94) fL MCH 33 H (27-31) pg MCHC 33 (31-36) g/dl RDW 13 (10.5-15) % Plt Count 468 H (150-450) 10^3/ul MPV 8 (7.4-10.4) um3 Neut % (Auto) 79.3 (38-83) % Lymph % (Auto) 8.1 L (25-47) % Loup % (Auto) 11.3 H (1-9) % Eos % (Auto) 0.6 (0-6) % Baso % (Auto) 0.7 (0-2) % Absolute Neuts (auto) 7.8 H (1.5-7.7) 10^3/ul Absolute Lymphs (auto) 0.8 L (1.0-4.8) 10^3/ul Absolute Monos (auto) 1.1 H (0-0.8) 10^3/ul Absolute Eos (auto) 0.1 (0-0.6) 10^3/ul Absolute Basos (auto) 0.1 (0-0.2) 10^3/ul Absolute Nucleated RBC 0.01 10^3/ul Nucleated RBC % 0.1 INR (Anticoag Therapy) 0.98 (0.89-1.11) APTT 29.0 (26.0-36.3) seconds Sodium 131 L (133-145) mmol/L Potassium 3.4 L (3.5-5.0) mmol/L Chloride 94 L (101-111) mmol/L Carbon Dioxide 23 (22-32) mmol/L Anion Gap 14 H (2-11) mmol/L BUN 77 H (6-24) mg/dL Creatinine 3.20 H (0.67-1.17) mg/dL Est GFR ( Amer) 24.4 (>60) Est GFR (Non-Af Amer) 19.0 (>60) BUN/Creatinine Ratio 24.1 H (8-20) Glucose 142 H (70-100) mg/dL Lactic Acid (0.5-2.0) mmol/L Calcium 9.4 (8.6-10.3) mg/dL Magnesium 2.3 (1.9-2.7) mg/dL Total Bilirubin 0.70 (0.2-1.0) mg/dL AST 251 H (13-39) U/L ALT 300 H (7-52) U/L Alkaline Phosphatase 62 (34-104) U/L C-Reactive Protein 23.66 H (< 5.00) mg/L B-Natriuretic Peptide ( - 100) pg/mL Total Protein 7.2 (6.4-8.9) g/dL Albumin 3.7 (3.2-5.2) g/dL Globulin 3.5 (2-4) g/dL Albumin/Globulin Ratio 1.1 (1-3) Amylase 20 L (29-103) U/L Lipase 37 (11.0-82.0) U/L Serum Alcohol < 10 (<10) mg/dL Blood Type Antibody Screen Crossmatch 02/21/17 02/21/17 02/21/17 Range/Units 11:30 11:30 11:30 WBC (3.5-10.8) 10^3/ul RBC (4.0-5.4) 10^6/ul Hgb (14.0-18.0) g/dl Hct (42-52) % MCV (80-94) fL MCH (27-31) pg MCHC (31-36) g/dl RDW (10.5-15) % Plt Count (150-450) 10^3/ul MPV (7.4-10.4) um3 Neut % (Auto) (38-83) % Lymph % (Auto) (25-47) % Loup % (Auto) (1-9) % Eos % (Auto) (0-6) % Baso % (Auto) (0-2) % Absolute Neuts (auto) (1.5-7.7) 10^3/ul Absolute Lymphs (auto) (1.0-4.8) 10^3/ul Absolute Monos (auto) (0-0.8) 10^3/ul Absolute Eos (auto) (0-0.6) 10^3/ul Absolute Basos (auto) (0-0.2) 10^3/ul Absolute Nucleated RBC 10^3/ul Nucleated RBC % INR (Anticoag Therapy) (0.89-1.11) APTT (26.0-36.3) seconds Sodium (133-145) mmol/L Potassium (3.5-5.0) mmol/L Chloride (101-111) mmol/L Carbon Dioxide (22-32) mmol/L Anion Gap (2-11) mmol/L BUN (6-24) mg/dL Creatinine (0.67-1.17) mg/dL Est GFR ( Amer) (>60) Est GFR (Non-Af Amer) (>60) BUN/Creatinine Ratio (8-20) Glucose (70-100) mg/dL Lactic Acid 1.9 (0.5-2.0) mmol/L Calcium (8.6-10.3) mg/dL Magnesium (1.9-2.7) mg/dL Total Bilirubin (0.2-1.0) mg/dL AST (13-39) U/L ALT (7-52) U/L Alkaline Phosphatase (34-104) U/L C-Reactive Protein (< 5.00) mg/L B-Natriuretic Peptide 102 H ( - 100) pg/mL Total Protein (6.4-8.9) g/dL Albumin (3.2-5.2) g/dL Globulin (2-4) g/dL Albumin/Globulin Ratio (1-3) Amylase (29-103) U/L Lipase (11.0-82.0) U/L Serum Alcohol (<10) mg/dL Blood Type A Negative Antibody Screen Negative Crossmatch See Detail Microbiology and Other Data: Microbiology 02/21/17 21:00 Stool Gross Appearance - Final Stool C. difficile DNA Amplification - Final 027 Presumptive NEGATIVE Toxigenic C.diff NEGATIVE Stool Lactoferrin - Final Assess/Plan/Problems-Billing Assessment: 76 yo male with a PMH of COPD, HTN, ARIA, CAD, and diverticultis who presented to ED on 02/21 with concern for BRBPR. - Patient Problems (1) Gastrointestinal bleed Code(s): K92.2 - GASTROINTESTINAL HEMORRHAGE, UNSPECIFIED Comment: HH stable following transfusion, continue to follow Suspect diverticular bleed but continue PPI for now Appreciate GI input Obtain records from [facility] - request pending. Continue IVF. 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 (2) MARIZOL (acute kidney injury) Code(s): N17.9 - ACUTE KIDNEY FAILURE, UNSPECIFIED Comment: Improved Likely pre-renal cause (FENa 0.5%) Patient also has history of chronic renal insufficiency. Continue to follow. (3) Electrolyte abnormality Code(s): E87.8 - OTH DISORDERS OF ELECTROLYTE AND FLUID BALANCE, NEC Comment: Hyponatremia - resolved, suspect secondary to hypovolemia Hypokalemia - K+ 3.1, will replace and follow. May be secondary to GI losses. (4) Elevated LFTs Code(s): R94.5 - ABNORMAL RESULTS OF LIVER FUNCTION STUDIES Comment: Unclear etiology Improving Appreciate GI input (5) Hypertension Code(s): I10 - ESSENTIAL (PRIMARY) HYPERTENSION Comment: Normotensive Continue to hold home medications. (6) History of COPD Code(s): Z87.09 - PERSONAL HISTORY OF OTHER DISEASES OF THE RESPIRATORY SYSTEM Comment: Stable. On chronic O2. Continue Dulera, prn nebulizer. (7) History of coronary artery disease Code(s): Z86.79 - PERSONAL HISTORY OF OTHER DISEASES OF THE CIRCULATORY SYSTEM Comment: Stable. Continue Imdur. (8) ARIA on CPAP Code(s): G47.33 - OBSTRUCTIVE SLEEP APNEA (ADULT) (PEDIATRIC) Comment: CPAP at night (9) DVT prophylaxis Comment: SCDs Anticoagulation contraindicated in acute GIB Status and Disposition: Inpatient admission. D/c to home when medically stable.
[2017-02-22 12:00] LABS: Hematocrit 24 % (42-52); Hemoglobin 8.1 g/dl (14.0-18.0)
[2017-02-22] MEDS: Albuterol 2.5 MG/3 ML NEB.SOL* (0.083%) INH PRN ×2 (13:49→18:17)
[2017-02-22 18:18] LABS: Hematocrit 27 % (42-52); Hemoglobin 8.9 g/dl (14.0-18.0)
[2017-02-22] MEDS: Isosorbide Mononitrate ER TAB* 60 MG PO SCH (20:11)
[2017-02-22] MEDS: traMADol TAB* 50 MG PO PRN (23:19)
[2017-02-23 00:34] LABS: Hematocrit 22 % (42-52); Hemoglobin 7.6 g/dl (14.0-18.0)
[2017-02-23] MEDS: Zolpidem TAB* 5 MG PO PRN (00:36)
[2017-02-23] MEDS: Pantoprazole IV* 80 MG in NS 0.9% 250 ML* 250 ML IVPB SCH ×2 (03:00→10:27)
[2017-02-23] MEDS: Albuterol 2.5 MG/3 ML NEB.SOL* (0.083%) INH PRN ×4 (03:08→23:03)
[2017-02-23 06:09] LABS: Hematocrit 21 % (42-52); Hemoglobin 7.2 g/dl (14.0-18.0); Mean Corpuscular HGB Conc 34 g/dl (31-36); Mean Corpuscular Hemoglobin 32 pg (27-31); Mean Corpuscular Volume 95 fL (80-94); Mean Platelet Volume 7 um3 (7.4-10.4); Red Blood Count 2.26 10^6/ul (4.0-5.4); Red Cell Distribution Width 16 % (10.5-15); White Blood Count 5.3 10^3/ul (3.5-10.8)
[2017-02-23 06:20] LABS: BUN/Creatinine Ratio 23.9 (8-20); Calcium 7.8 mg/dL (8.6-10.3); EGFR African American 81.1 (>60); EGFR Non-African American 63.1 (>60); Potassium 3.4 mmol/L (3.5-5.0)
[2017-02-23] MEDS: Mometasone/Formoter 200/5 MDI INH SCH ×2 (08:01→20:15)
[2017-02-23] MEDS: Multivitamins/Minerals TAB PO SCH (09:00)
[2017-02-23] MEDS: LORazepam TAB(*) 0.5 MG PO SCH (09:00)
[2017-02-23] MEDS: Thiamine TAB* 100 MG TAB PO SCH (09:00)
[2017-02-23] MEDS: Atorvastatin* 10 MG TAB PO SCH (09:00)
[2017-02-23] MEDS: Gabapentin CAP(*) 300 MG PO SCH ×3 (09:00→21:28)
[2017-02-23] MEDS: Folic Acid TAB* 1 MG PO SCH (09:00)
--- NOTE | 2017-02-23 09:43 | PN ---
Subjective Date of Service: 02/23/17 Interval History: Patient seen and examined at bedside. Patient reports feeling better, is tolerating food. Denies any further bloody stools. He denies CP. He chronically wears 4Lnc and can't tell if his breathing is worse, but feels that he does get winded a little more easily. He wants to go home as soon as possible but is also concerned he may start bleeding again. Patient hopes to talk to GI again this morning; Dr. Mcfarlane aware and will see patient. Family History: Unchanged from Admission Social History: Unchanged from Admission Past Medical History: Unchanged from Admission Objective Active Medications: Albuterol (Ventolin 2.5 Mg/3 Ml Neb.Nellie*) 2.5 mg INH Q2H PRN PRN Reason: SOB/WHEEZING Last Admin: 02/23/17 03:08 Dose: 2.5 mg Atorvastatin Calcium (Lipitor*) 10 mg PO DAILY [facility] Last Admin: 02/23/17 09:00 Dose: 10 mg Folic Acid (Folvite Tab*) 1 mg PO DAILY [facility] Last Admin: 02/23/17 09:00 Dose: 1 mg Gabapentin (Neurontin Cap(*)) 300 mg PO TID [facility] Last Admin: 02/23/17 09:00 Dose: 300 mg Potassium Chloride 40 meq/ (Lactated Ringer's) 1,020 mls @ 100 mls/hr IVPB Q10H [facility] Stop: 02/23/17 19:59 Isosorbide Mononitrate (Imdur Er Tab*) 60 mg PO QPM [facility] Last Admin: 02/22/17 20:11 Dose: 60 mg Lorazepam (Ativan Tab(*)) 0 mg PO .PER WAM SCORE [facility] PRN Reason: Protocol Lorazepam (Ativan Tab(*)) 0.5 mg PO DAILY [facility] Last Admin: 02/23/17 09:00 Dose: 0.5 mg Mometasone Furoate/Formoterol Fumar (Dulera 200/5 Mdi*) 2 puff INH BID [facility] Last Admin: 02/23/17 08:01 Dose: 2 puff Multivitamins/Minerals (Theragran/Minerals Tab*) 1 tab PO DAILY [facility] Last Admin: 02/23/17 09:00 Dose: 1 tab Ondansetron HCl (Zofran Inj*) 4 mg IV Q6H PRN PRN Reason: NAUSEA Thiamine HCl (Vitamin B-1 Tab*) 100 mg PO DAILY [facility] Last Admin: 02/23/17 09:00 Dose: 100 mg Tramadol HCl (Ultram*) 50 mg PO Q8HR PRN PRN Reason: PAIN Last Admin: 02/22/17 23:19 Dose: 50 mg Zolpidem Tartrate (Ambien Tab*) 5 mg PO BEDTIME PRN PRN Reason: SLEEP Last Admin: 02/23/17 00:36 Dose: 5 mg Vital Signs 02/22/17 02/22/17 02/22/17 10:05 13:31 13:50 Temperature Pulse Rate 72 Respiratory 16 16 12 Rate Blood Pressure (mmHg) O2 Sat by Pulse 96 Oximetry 02/22/17 02/22/17 02/22/17 15:13 15:31 18:18 Temperature 97.7 F Pulse Rate 80 74 Respiratory 20 16 20 Rate Blood Pressure 130/55 (mmHg) O2 Sat by Pulse 93 95 Oximetry 02/22/17 02/22/17 02/22/17 19:40 20:00 20:03 Temperature 98.3 F Pulse Rate 97 87 Respiratory 16 19 24 Rate Blood Pressure 119/49 (mmHg) O2 Sat by Pulse 98 100 Oximetry 02/22/17 02/22/17 02/22/17 20:10 23:19 23:31 Temperature 98.2 F Pulse Rate 77 Respiratory 20 18 20 Rate Blood Pressure 114/41 (mmHg) O2 Sat by Pulse 100 Oximetry 02/23/17 02/23/17 02/23/17 00:00 01:19 03:09 Temperature Pulse Rate 80 Respiratory 15 20 Rate Blood Pressure (mmHg) O2 Sat by Pulse 97 98 Oximetry 02/23/17 02/23/17 02/23/17 03:51 07:40 09:00 Temperature 97.8 F 98.7 F Pulse Rate 81 90 Respiratory 20 18 17 Rate Blood Pressure 131/35 106/59 (mmHg) O2 Sat by Pulse 92 99 Oximetry 02/23/17 09:04 Temperature Pulse Rate Respiratory 16 Rate Blood Pressure (mmHg) O2 Sat by Pulse Oximetry Oxygen Devices in Use Now: Nasal Cannula - 4L Appearance: Elderly male, sitting on edge of bed, NAD Eyes: PERRLA Ears/Nose/Mouth/Throat: Mucous Membranes Moist Neck: NL Appearance and Movements; NL JVP Respiratory: Symmetrical Chest Expansion and Respiratory Effort, Clear to Auscultation Cardiovascular: NL Sounds; No Murmurs; No JVD, RRR Abdominal: NL Sounds; No Tenderness; No Distention Extremities: No Edema Neurological: Alert and Oriented x 3 Lines/Tubes/Other Access: Clean, Dry and Intact Peripheral IV Nutrition: Taking PO's Result Diagrams: 02/23/17 05:37 02/23/17 05:37 Additional Lab and Data: Lab Results 02/21/17 02/21/17 02/21/17 Range/Units 11:30 11:30 11:30 WBC 9.8 (3.5-10.8) 10^3/ul RBC 2.29 L (4.0-5.4) 10^6/ul Hgb 7.5 L (14.0-18.0) g/dl Hct 23 L (42-52) % MCV 99 H (80-94) fL MCH 33 H (27-31) pg MCHC 33 (31-36) g/dl RDW 13 (10.5-15) % Plt Count 468 H (150-450) 10^3/ul MPV 8 (7.4-10.4) um3 Neut % (Auto) 79.3 (38-83) % Lymph % (Auto) 8.1 L (25-47) % Millard % (Auto) 11.3 H (1-9) % Eos % (Auto) 0.6 (0-6) % Baso % (Auto) 0.7 (0-2) % Absolute Neuts (auto) 7.8 H (1.5-7.7) 10^3/ul Absolute Lymphs (auto) 0.8 L (1.0-4.8) 10^3/ul Absolute Monos (auto) 1.1 H (0-0.8) 10^3/ul Absolute Eos (auto) 0.1 (0-0.6) 10^3/ul Absolute Basos (auto) 0.1 (0-0.2) 10^3/ul Absolute Nucleated RBC 0.01 10^3/ul Nucleated RBC % 0.1 INR (Anticoag Therapy) 0.98 (0.89-1.11) APTT 29.0 (26.0-36.3) seconds Sodium 131 L (133-145) mmol/L Potassium 3.4 L (3.5-5.0) mmol/L Chloride 94 L (101-111) mmol/L Carbon Dioxide 23 (22-32) mmol/L Anion Gap 14 H (2-11) mmol/L BUN 77 H (6-24) mg/dL Creatinine 3.20 H (0.67-1.17) mg/dL Est GFR ( Amer) 24.4 (>60) Est GFR (Non-Af Amer) 19.0 (>60) BUN/Creatinine Ratio 24.1 H (8-20) Glucose 142 H (70-100) mg/dL Lactic Acid (0.5-2.0) mmol/L Calcium 9.4 (8.6-10.3) mg/dL Magnesium 2.3 (1.9-2.7) mg/dL Total Bilirubin 0.70 (0.2-1.0) mg/dL AST 251 H (13-39) U/L ALT 300 H (7-52) U/L Alkaline Phosphatase 62 (34-104) U/L C-Reactive Protein 23.66 H (< 5.00) mg/L B-Natriuretic Peptide ( - 100) pg/mL Total Protein 7.2 (6.4-8.9) g/dL Albumin 3.7 (3.2-5.2) g/dL Globulin 3.5 (2-4) g/dL Albumin/Globulin Ratio 1.1 (1-3) Amylase 20 L (29-103) U/L Lipase 37 (11.0-82.0) U/L Serum Alcohol < 10 (<10) mg/dL Blood Type Antibody Screen Crossmatch 02/21/17 02/21/17 02/21/17 Range/Units 11:30 11:30 11:30 WBC (3.5-10.8) 10^3/ul RBC (4.0-5.4) 10^6/ul Hgb (14.0-18.0) g/dl Hct (42-52) % MCV (80-94) fL MCH (27-31) pg MCHC (31-36) g/dl RDW (10.5-15) % Plt Count (150-450) 10^3/ul MPV (7.4-10.4) um3 Neut % (Auto) (38-83) % Lymph % (Auto) (25-47) % Millard % (Auto) (1-9) % Eos % (Auto) (0-6) % Baso % (Auto) (0-2) % Absolute Neuts (auto) (1.5-7.7) 10^3/ul Absolute Lymphs (auto) (1.0-4.8) 10^3/ul Absolute Monos (auto) (0-0.8) 10^3/ul Absolute Eos (auto) (0-0.6) 10^3/ul Absolute Basos (auto) (0-0.2) 10^3/ul Absolute Nucleated RBC 10^3/ul Nucleated RBC % INR (Anticoag Therapy) (0.89-1.11) APTT (26.0-36.3) seconds Sodium (133-145) mmol/L Potassium (3.5-5.0) mmol/L Chloride (101-111) mmol/L Carbon Dioxide (22-32) mmol/L Anion Gap (2-11) mmol/L BUN (6-24) mg/dL Creatinine (0.67-1.17) mg/dL Est GFR ( Amer) (>60) Est GFR (Non-Af Amer) (>60) BUN/Creatinine Ratio (8-20) Glucose (70-100) mg/dL Lactic Acid 1.9 (0.5-2.0) mmol/L Calcium (8.6-10.3) mg/dL Magnesium (1.9-2.7) mg/dL Total Bilirubin (0.2-1.0) mg/dL AST (13-39) U/L ALT (7-52) U/L Alkaline Phosphatase (34-104) U/L C-Reactive Protein (< 5.00) mg/L B-Natriuretic Peptide 102 H ( - 100) pg/mL Total Protein (6.4-8.9) g/dL Albumin (3.2-5.2) g/dL Globulin (2-4) g/dL Albumin/Globulin Ratio (1-3) Amylase (29-103) U/L Lipase (11.0-82.0) U/L Serum Alcohol (<10) mg/dL Blood Type A Negative Antibody Screen Negative Crossmatch See Detail Microbiology and Other Data: Microbiology 02/21/17 21:00 Stool Gross Appearance - Final Stool C. difficile DNA Amplification - Final 027 Presumptive NEGATIVE Toxigenic C.diff NEGATIVE Stool Lactoferrin - Final Assess/Plan/Problems-Billing Assessment: 76 yo male with a PMH of COPD, HTN, ARIA, CAD, and diverticultis who presented to ED on 02/21 with concern for BRBPR. - Patient Problems (1) Gastrointestinal bleed Code(s): K92.2 - GASTROINTESTINAL HEMORRHAGE, UNSPECIFIED Comment: HH stable following transfusion, continue to follow Suspect diverticular bleed Appreciate GI input Patient's colonscopy from 2011 showed diverticulosis, per records. Give 1 additional liter of IVF, then d/c. Patient tolerating regular food. 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 (2) MARIZOL (acute kidney injury) Code(s): N17.9 - ACUTE KIDNEY FAILURE, UNSPECIFIED Comment: Resolved Likely pre-renal cause (FENa 0.5%) Patient also has history of chronic renal insufficiency. Continue to follow. (3) Electrolyte abnormality Code(s): E87.8 - OTH DISORDERS OF ELECTROLYTE AND FLUID BALANCE, NEC Comment: Hyponatremia - resolved, suspect secondary to hypovolemia Hypokalemia - K+ 3.4, patient to receive IVF with 40 meQ K+ x 1 liter (4) Elevated LFTs Code(s): R94.5 - ABNORMAL RESULTS OF LIVER FUNCTION STUDIES Comment: Improving Appreciate GI input (5) Hypertension Code(s): I10 - ESSENTIAL (PRIMARY) HYPERTENSION Comment: Normotensive Continue to hold home medications. (6) History of COPD Code(s): Z87.09 - PERSONAL HISTORY OF OTHER DISEASES OF THE RESPIRATORY SYSTEM Comment: Stable. On chronic O2 (uses 4Lnc at home) Continue Dulera, prn nebulizer. (7) History of coronary artery disease Code(s): Z86.79 - PERSONAL HISTORY OF OTHER DISEASES OF THE CIRCULATORY SYSTEM Comment: Stable. Continue Imdur. (8) ARIA on CPAP Code(s): G47.33 - OBSTRUCTIVE SLEEP APNEA (ADULT) (PEDIATRIC) Comment: CPAP at night (9) DVT prophylaxis Comment: SCDs Anticoagulation contraindicated in acute GIB Status and Disposition: Inpatient admission. D/c to home when medically stable.
[2017-02-23 11:18] LABS: Hematocrit 25 % (42-52)
[2017-02-23] MEDS: traMADol TAB* 50 MG PO PRN ×2 (14:15→22:09)
[2017-02-23] MEDS: Isosorbide Mononitrate ER TAB* 60 MG PO SCH (17:54)
[2017-02-24] MEDS: Zolpidem TAB* 5 MG PO PRN (00:07)
[2017-02-24 05:28] LABS: Hematocrit 21 % (42-52); Hemoglobin 7.1 g/dl (14.0-18.0); Mean Corpuscular HGB Conc 34 g/dl (31-36); Mean Corpuscular Hemoglobin 32 pg (27-31); Mean Corpuscular Volume 96 fL (80-94); Mean Platelet Volume 8 um3 (7.4-10.4); Red Blood Count 2.23 10^6/ul (4.0-5.4); Red Cell Distribution Width 16 % (10.5-15); White Blood Count 5.4 10^3/ul (3.5-10.8)
[2017-02-24 05:44] LABS: Albumin 2.9 g/dL (3.2-5.2); BUN/Creatinine Ratio 23.5 (8-20); EGFR African American 95.6 (>60); EGFR Non-African American 74.4 (>60); Globulin 2.6 g/dL (2-4); Potassium 3.8 mmol/L (3.5-5.0); Total Bilirubin 0.5 mg/dL (0.2-1.0); Total Protein 5.5 g/dL (6.4-8.9)
[2017-02-24] MEDS: Albuterol 2.5 MG/3 ML NEB.SOL* (0.083%) INH PRN ×2 (06:12→14:12)
[2017-02-24] MEDS ORDERED: Acetaminophen TAB* 325 MG PO PRN (06:24)
[2017-02-24] MEDS ORDERED: Acetaminophen TAB* 325 MG ONE (06:27)
[2017-02-24] MEDS: traMADol TAB* 50 MG PO PRN (06:32)
[2017-02-24 07:50] VITALS: BP 128/43
[2017-02-24] MEDS: Mometasone/Formoter 200/5 MDI INH SCH (08:14)
[2017-02-24 08:32] LABS: Hematocrit 21 % (42-52); Hemoglobin 7.2 g/dl (14.0-18.0)
[2017-02-24] MEDS: Multivitamins/Minerals TAB PO SCH (09:02)
[2017-02-24] MEDS: Thiamine TAB* 100 MG TAB PO SCH (09:02)
[2017-02-24] MEDS: Gabapentin CAP(*) 300 MG PO SCH (09:02)
[2017-02-24] MEDS: Atorvastatin* 10 MG TAB PO SCH (09:03)
[2017-02-24] MEDS: LORazepam TAB(*) 0.5 MG PO SCH (09:03)
[2017-02-24] MEDS: Folic Acid TAB* 1 MG PO SCH (09:04)
--- NOTE | 2017-02-25 02:56 | DS ---
DISCHARGE SUMMARY: DATE OF ADMISSION: 02/21/17 DATE OF DISCHARGE: 02/24/17 PRIMARY CARE PROVIDER: Diane Zavala MD DISCHARGE DIAGNOSES: 1. Acute GI hemorrhage, most likely diverticular. 2. Anemia due to GI hemorrhage as above. 3. Acute kidney injury due to GI hemorrhage and prerenal causes that resolved. 4. Elevation of liver function tests due to most likely hemoperfusion secondary to GI hemorrhage that resolved. SECONDARY DIAGNOSES: 1. Chronic obstructive pulmonary disease without exacerbation on 4 L of oxygen continuously. 2. Hypertension. 3. Obstructive sleep apnea. 4. History of coronary artery disease. 5. Diverticulitis in the past. MEDICATIONS ON DISCHARGE: Include: 1. Albuterol inhaler on a p.r.n. basis. 2. Vitamin D3 1000 units daily. 3. Cranberry 500 mg daily. 4. Ferrous sulfate 325 mg b.i.d. 5. Advair 250/50 mcg 1 inhalation b.i.d. 6. Furosemide 40 mg daily. 7. Gabapentin 300 mg 3 times a day. 8. Imdur ER 60 mg daily. 9. Lorazepam 0.5 mg daily p.r.n. 10. Multivitamin 1 tablet daily. 11. Nitroglycerin 0.4 mg sublingually p.r.n. 12. Omeprazole 20 mg b.i.d. 13. Metamucil 1 packet daily. 14. Zocor 20 mg daily. 15. Ambien 5 mg at bedtime. 16. Ultram 50 mg every 4 hours p.r.n. CONSULTATIONS: During the hospital stay included Dr. Miranda from Gastroenterology followed by Dr. Mcfarlane from the same office. LABORATORY DATA AND STUDIES PERFORMED DURING THE HOSPITAL STAY: Included: On 02/24/17: Sodium of 137, potassium 3.8, chloride 107, carbon dioxide 25, BUN 26, and creatinine 0.98. Liver function tests showed AST of 33, ALT of 95, and alkaline phosphatase of 45. Creatinine peaked at 3.2 at admission. The patient's AST was 251 and ALT of 300 respectively at admission. Hemoglobin was 7.2 and hematocrit of 21 on the day of discharge. Abdomen and pelvis CT obtained on 02/21/17, impression: "Diverticulosis without CT evidence of acute inflammatory change characteristic of diverticulitis" with the limitation of non-IV contrast enhanced CT. There are suspicious signs of portal venous hypertension yielding mesenteric and gastric varices. Please correlate to any signs of upper GI bleed. Mild prostatomegaly with a top normal, but not pathologically enlarged urinary bladder. Please correlate with symptoms of obstruction." Chest x-ray obtained on 02/21/17, impression: "Hyperinflation consistent with COPD. No active chronic pulmonary disease." During his hospital stay, the patient was transfused a total of 2 units of packed red blood cells. HOSPITALIZATION COURSE: A 76-year-old male with history of oxygen-dependent COPD on 4 L and diverticulosis, who presented to the hospital with bright red blood per rectum. Dr. Miranda saw the patient in consultation on 02/21/17. It was suspected that the patient most likely suffered from diverticular bleed and hypoperfusion of his liver and kidneys that resulted in elevation of liver function tests and acute kidney injury. That resolved after initial 2 units of packed blood cell transfusion as well as intravenous hydration. The patient was treated conservatively and did very well. Although his hemoglobin was low on the day of discharge at 7, that was most likely due to hemodilution. The patient was asymptomatic from his anemia standpoint and ready to go home at discharge. He is going to be prescribed Prilosec on a b.i.d. basis as well as ferrous sulfate to replace his iron losses. At discharge, the patient is recommended to follow up with a CBC draw in approximately 2 to [address] to see Dr[address] Zavala in regards to that. It is the supervisor data processing's recommendation that if the patient continues to have anemia, he needs to be seen as outpatient by the [facility] for a scheduled colonoscopy. The patient is recommended a high-fiber diet at discharge. PHYSICAL EXAM AT THE TIME OF DISCHARGE: Blood pressure of 128/43, heart rate of 81 and regular, respiratory rate of 18, oxygen saturation 99% on 4 L of oxygen via nasal cannula, and temperature 98.2. General: The patient is a very pleasant 76- year-old male, who is in no acute distress. Alert, awake, and oriented x3. HEENT: Head is atraumatic, normocephalic. Eyes: Pupils equal , reactive to light and accommodation. Oropharynx clear. Mucosa moist. Neck: Supple. No JVD. No bruits bilaterally. Cardiovascular: Regular rate and rhythm. No murmurs. Respiratory: Clear to auscultation bilaterally. Abdomen: Soft and nontender. Bowel sounds present in all 4 quadrants. Extremities: There is no edema. Pulses present 2+ bilaterally. No clubbing or cyanosis. Neuro Evaluation: Speech clear. Cranial nerves II through XII are grossly intact. Motor strength is 5/5 bilaterally. Please note that this is a short summary of the patient's hospital stay. Please refer to further medical records for details. TIME SPENT: Approximately 40 minutes were spent on the patient's discharge. CC: Dr. Zavala; Dr. Mcfarlane; Dr. Miranda* [id number]/[facility] #: [id number] [facility]
== END 2017-02-24 15:50 | disposition home or self-care (01) | DRG 811 ==
LOC: ED 11:19 → MEDTELE 13:01
PROVIDERS: ADMIT Internal Medicine; ATTEND Internal Medicine
PROC: 30233N1 Transfusion of Nonautologous Red Blood Cells into Peripheral Vein, Percutaneous Approach (ICD-10-PCS; principal; 2017-02-21)
DX: D64.9 Anemia, unspecified (principal); K57.91 Diverticulosis of intestine, part unspecified, without perforation or abscess with bleeding; N17.9 Acute kidney failure, unspecified; E87.1 Hypo-osmolality and hyponatremia; Z99.81 Dependence on supplemental oxygen; J44.9 Chronic obstructive pulmonary disease, unspecified; N40.0 Benign prostatic hyperplasia without lower urinary tract symptoms; R79.89 Other specified abnormal findings of blood chemistry; G47.33 Obstructive sleep apnea (adult) (pediatric); F41.9 Anxiety disorder, unspecified; M17.0 Bilateral primary osteoarthritis of knee; M19.011 Primary osteoarthritis, right shoulder; M19.049 Primary osteoarthritis, unspecified hand; I25.10 Atherosclerotic heart disease of native coronary artery without angina pectoris; E87.6 Hypokalemia; I45.10 Unspecified right bundle-branch block; E78.5 Hyperlipidemia, unspecified; I12.9 Hypertensive chronic kidney disease with stage 1 through stage 4 chronic kidney disease, or unspecified chronic kidney disease; N18.9 Chronic kidney disease, unspecified; Z88.6 Allergy status to analgesic agent; Z88.1 Allergy status to other antibiotic agents; Z88.8 Allergy status to other drugs, medicaments and biological substances; Z87.891 Personal history of nicotine dependence; Z72.89 Other problems related to lifestyle; Z80.1 Family history of malignant neoplasm of trachea, bronchus and lung
CPT/HCPCS: 36415; 71020; 74020; 74176; 80048; 80053; 80076; 80320; 81003; 81015; 82150; 82272; 82570; 83605; 83630; 83690; 83735; 83880; 84300; 85014; 85018; 85025; 85610; 85730; 86140; 86850; 86900; 86901; 86922; 87045; 87046; 87077; 87086; 87186; 87493; 87899; 93005; 94640; 94760; A9270-GY; G0480; J3480; P9040; Q9967